=== PATIENT | female | born 1975 | race Caucasian/White ===

== ENCOUNTER → 2023-02-07 | Outpatient (REF) | payer OTHER ==
[2023-02-07 17:56] LABS: APPEARANCE, URINE HAZY (CLEAR); BACTERIA, URINE AUTO NEGATIVE (NEGATIVE); BILIRUBIN, URINE AUTO NEGATIVE (NEGATIVE); BLOOD, URINE BLOOD NEGATIVE (NEGATIVE); COLOR, URINE YELLOW (YELLOW); GLUCOSE, URINE (UA) AUTO NEGATIVE (NEGATIVE); KETONE, URINE AUTO NEGATIVE (NEGATIVE); LEUKOCYTE ESTERASE, URINE AUTO NEGATIVE (NEGATIVE); NITRITE, URINE AUTO NEGATIVE (NEGATIVE); PROTEIN, URINE AUTO NEGATIVE (NEGATIVE); RBC, URINE AUTO 0 /HPF (0-3); SPECIFIC GRAVITY URINE AUTO 1.016 (1.002-1.035); SQUAMOUS EPITHELIAL CELL UR AU 11 /HPF (0-6); UROBILINOGEN, URINE AUTO 0.2 mg/dL (0.0-2.0); WBC, URINE AUTO 4 /HPF (0-3)
== END ==
LOC: M LABSMT 11:09
PROVIDERS: ATTEND Specialist
DX: N39.41 Urge incontinence (principal)

== ENCOUNTER → 2023-05-21 | Outpatient (REF) | payer OTHER ==
[2023-05-21 19:00] LABS: APPEARANCE, URINE CLEAR (CLEAR); BACTERIA, URINE AUTO 1+ (NEGATIVE); BILIRUBIN, URINE AUTO NEGATIVE (NEGATIVE); BLOOD, URINE BLOOD NEGATIVE (NEGATIVE); COLOR, URINE YELLOW (YELLOW); GLUCOSE, URINE (UA) AUTO NEGATIVE (NEGATIVE); KETONE, URINE AUTO NEGATIVE (NEGATIVE); LEUKOCYTE ESTERASE, URINE AUTO NEGATIVE (NEGATIVE); MUCUS, URINE SMALL (NEGATIVE); NITRITE, URINE AUTO NEGATIVE (NEGATIVE); PROTEIN, URINE AUTO NEGATIVE (NEGATIVE); RBC, URINE AUTO 1 /HPF (0-3); SPECIFIC GRAVITY URINE AUTO 1.018 (1.002-1.035); SQUAMOUS EPITHELIAL CELL UR AU 2 /HPF (0-6); WBC, URINE AUTO 4 /HPF (0-3)
== END ==
LOC: M SMT 17:09
PROVIDERS: ATTEND Specialist
DX: N32.81 Overactive bladder (principal)

== ENCOUNTER → 2023-07-12 | Outpatient (REF) | payer OTHER ==
[2023-07-12 17:39] LABS: AMORPHOUS SEDIMENT SMALL (NEGATIVE); APPEARANCE, URINE TURBID (CLEAR); BACTERIA, URINE AUTO 2+ (NEGATIVE); BILIRUBIN, URINE AUTO NEGATIVE (NEGATIVE); BLOOD, URINE BLOOD NEGATIVE (NEGATIVE); COLOR, URINE AMBER (YELLOW); GLUCOSE, URINE (UA) AUTO NEGATIVE (NEGATIVE); KETONE, URINE AUTO NEGATIVE (NEGATIVE); LEUKOCYTE ESTERASE, URINE AUTO TRACE (NEGATIVE); MUCUS, URINE SMALL (NEGATIVE); NITRITE, URINE AUTO POSITIVE (NEGATIVE); PROTEIN, URINE AUTO NEGATIVE (NEGATIVE); RBC, URINE AUTO 0 /HPF (0-3); SQUAMOUS EPITHELIAL CELL UR AU 16 /HPF (0-6); UROBILINOGEN, URINE AUTO 0.2 mg/dL (0.0-2.0); WBC, URINE AUTO 11 /HPF (0-3)
== END ==
LOC: M LABSMT 15:17
PROVIDERS: ATTEND Specialist
DX: R30.0 Dysuria (principal)

== ENCOUNTER → 2024-01-07 | Outpatient (REF) | payer OTHER ==
[2024-01-07 13:06] LABS: APPEARANCE, URINE HAZY (CLEAR); BACTERIA, URINE AUTO 1+ (NEGATIVE); BILIRUBIN, URINE AUTO NEGATIVE (NEGATIVE); BLOOD, URINE BLOOD NEGATIVE (NEGATIVE); COLOR, URINE YELLOW (YELLOW); GLUCOSE, URINE (UA) AUTO NEGATIVE (NEGATIVE); KETONE, URINE AUTO NEGATIVE (NEGATIVE); LEUKOCYTE ESTERASE, URINE AUTO NEGATIVE (NEGATIVE); NITRITE, URINE AUTO NEGATIVE (NEGATIVE); PROTEIN, URINE AUTO NEGATIVE (NEGATIVE); RBC, URINE AUTO 0 /HPF (0-3); SPECIFIC GRAVITY URINE AUTO 1.017 (1.002-1.035); SQUAMOUS EPITHELIAL CELL UR AU 4 /HPF (0-6); UROBILINOGEN, URINE AUTO 0.2 mg/dL (0.0-2.0); WBC, URINE AUTO 1 /HPF (0-3)
== END ==
LOC: M SMT 12:36
PROVIDERS: ATTEND Physician Assistant
DX: R30.0 Dysuria (principal)

== ENCOUNTER → 2024-07-14 | Outpatient (CLI) | payer OTHER | LOC: M SLEEP 20:00 | PROVIDERS: ATTEND Nurse Practitioner Adult Health | DX: G47.33 Obstructive sleep apnea (adult) (pediatric) (principal) ==

== ENCOUNTER 2024-09-07 07:44 | Day surgery (SDC) | payer OTHER ==
[~2024-09-07] VITALS: Ht 172.7 cm; Wt 121.5 kg
[~2024-09-07 07:44] MED LIST: ALBU8.5H INH; AMIT50TA PO; ARIP1TAB6 PO; ATOR1TAB21 PO; DULO1CAP6 PO; FERR324T2 PO; GABA-1172 PO; HYDR-643 PO; LEVO50TA45 PO; METH-855 PO; MONT10TA97 PO; SALA1TAB PO; SEMA0.257 SQ; SOLI5TAB PO; TRAM50TA2 PO; TREL1AER INH; TRIA37.5 PO; UPADACITINIB PO; VIBE75TA PO; ceFAZolin SOD 2 GM IV ONCE IV ONE
[2024-09-07] MEDS ORDERED: LR 1,000 ML IV SCH ×2 (07:50→09:25)
[2024-09-07] MEDS ORDERED: MIDAZOLAM INJ 2MG/2ML VIAL As Ordered ONE (08:32)
[2024-09-07] MEDS ORDERED: fentaNYL 100 MCG/2 ML INJECTION As Ordered ONE (08:32)
[2024-09-07] MEDS ORDERED: propofoL 200 MG/20 ML VIAL As Ordered ONE (08:32)
[2024-09-07] MEDS ORDERED: LIDOCAINE 2% 100MG/5ML SDV (FOR ANES.) As Ordered ONE (08:32)
[2024-09-07] MEDS ORDERED: ONDANSETRON 4MG 2ML VIAL As Ordered ONE (08:32)
[2024-09-07] MEDS: ceFAZolin SOD 3 GM in DEXTROSE 5% (D5W) MINI-BAG PLU 1... IV ONE (08:58)
[2024-09-07] MEDS: LIDOCAINE 2% 5ML JELLY UROJET As Ordered ONE (09:09)
[2024-09-07] MEDS ORDERED: MACR100C43 PO (09:15)
[2024-09-07] MEDS ORDERED: fentaNYL 100 MCG/2 ML INJECTION IV PRN (09:25)
[2024-09-07] MEDS ORDERED: HYDROMORPHONE HCL 0.5 MG/ 0.5 ML SYRINGE IV PRN (09:25)
[2024-09-07] MEDS ORDERED: oxyCODONE 5MG TAB PO PRN (09:25)
[2024-09-07] MEDS ORDERED: ONDANSETRON 4MG 2ML VIAL IV PRN (09:25)
[2024-09-07 10:00] VITALS: BP 142/68; TEMP 97.2; O2SAT 98
== END 2024-09-07 10:26 | disposition home or self-care (01) ==
LOC: M SDC 07:44
PROVIDERS: ATTEND Urology
DX: N39.3 Stress incontinence (female) (male) (principal); E03.9 Hypothyroidism, unspecified; E78.00 Pure hypercholesterolemia, unspecified; J45.909 Unspecified asthma, uncomplicated; Z79.899 Other long term (current) drug therapy; M06.9 Rheumatoid arthritis, unspecified; E55.9 Vitamin D deficiency, unspecified
CPT/HCPCS: 51715; A4215; A4649; J0690; J1100; J2250; J2405; J3010; L8606

== ENCOUNTER → 2024-10-01 | Outpatient (CLI) | payer OTHER ==
[~2024-10-01] MED LIST changes: +B-122500 PO; +BIOT5TAB3 PO; +D-3-50003 PO; +LEVO200T31 PO; +LEVO25TA34 PO; +MACR100C43 PO; +MAPA500C PO; +UPAD15TA PO; -ceFAZolin SOD 2 GM IV ONCE IV ONE
== END ==
LOC: M SLEEP 20:00
PROVIDERS: ATTEND Nurse Practitioner Adult Health
DX: G47.33 Obstructive sleep apnea (adult) (pediatric) (principal)

== ENCOUNTER 2024-10-12 07:38 | Day surgery (SDC) | payer OTHER ==
[~2024-10-12] VITALS: Ht 172.7 cm; Wt 121.1 kg
[~2024-10-12 07:38] MED LIST changes: +LIDOCAINE 2% 100MG/5ML SDV (FOR ANES.) As Ordered ONE; +propofoL 200 MG/20 ML VIAL As Ordered ONE
[2024-10-12] MEDS ORDERED: fentaNYL 100 MCG/2 ML INJECTION As Ordered ONE (08:55)
[2024-10-12] MEDS: ceFAZolin SOD 2 GM IV ONCE IV ONE (09:18)
[2024-10-12] MEDS ORDERED: ONDANSETRON 4MG 2ML VIAL As Ordered ONE (09:28)
[2024-10-12] MEDS: LIDOCAINE 2% 5ML JELLY UROJET As Ordered ONE (09:30)
[2024-10-12] MEDS ORDERED: MEPERIDINE 25 MG/ML 1ML VIAL IV PRN (09:50)
[2024-10-12] MEDS ORDERED: ONDANSETRON 4MG 2ML VIAL IV PRN (09:50)
[2024-10-12] MEDS ORDERED: fentaNYL 100 MCG/2 ML INJECTION IV PRN (09:50)
[2024-10-12] MEDS ORDERED: LR 1,000 ML IV SCH (09:50)
[2024-10-12] MEDS ORDERED: METOCLOPRAMIDE INJ 10MG/2ML VIAL IV PRN (09:50)
[2024-10-12] MEDS ORDERED: diphenhydrAMINE 50MG/ML VIAL IV PRN (09:50)
[2024-10-12] MEDS ORDERED: oxyCODONE 5MG TAB PO PRN (09:50)
[2024-10-12 10:55] VITALS: BP 139/83; TEMP 97.6; O2SAT 100
== END 2024-10-12 10:58 | disposition home or self-care (01) ==
LOC: M SDC 07:38
PROVIDERS: ATTEND Urology
DX: N39.3 Stress incontinence (female) (male) (principal); N28.9 Disorder of kidney and ureter, unspecified; I10 Essential (primary) hypertension; E11.9 Type 2 diabetes mellitus without complications; E78.00 Pure hypercholesterolemia, unspecified; J44.89 Other specified chronic obstructive pulmonary disease; E89.0 Postprocedural hypothyroidism; E66.9 Obesity, unspecified; M06.9 Rheumatoid arthritis, unspecified; Z79.899 Other long term (current) drug therapy; Z79.890 Hormone replacement therapy; Z79.620 Long term (current) use of immunosuppressive biologic; Z79.51 Long term (current) use of inhaled steroids; Z79.85 Long-term (current) use of injectable non-insulin antidiabetic drugs; Z92.3 Personal history of irradiation; F17.210 Nicotine dependence, cigarettes, uncomplicated; K21.9 Gastro-esophageal reflux disease without esophagitis; F41.9 Anxiety disorder, unspecified; F32.A Depression, unspecified; Z90.710 Acquired absence of both cervix and uterus
CPT/HCPCS: 51715; A4215; J0690; J2405; J3010; L8606

== ENCOUNTER → 2024-12-17 | Outpatient (REF) | payer OTHER ==
[~2024-12-17] MED LIST changes: -LIDOCAINE 2% 100MG/5ML SDV (FOR ANES.) As Ordered ONE; -propofoL 200 MG/20 ML VIAL As Ordered ONE
[2024-12-17 13:53] LABS: APPEARANCE, URINE HAZY (CLEAR); BACTERIA, URINE AUTO NEGATIVE (NEGATIVE); BILIRUBIN, URINE AUTO NEGATIVE (NEGATIVE); BLOOD, URINE BLOOD NEGATIVE (NEGATIVE); GLUCOSE, URINE (UA) AUTO NEGATIVE (NEGATIVE); KETONE, URINE AUTO NEGATIVE (NEGATIVE); LEUKOCYTE ESTERASE, URINE AUTO NEGATIVE (NEGATIVE); MUCUS, URINE SMALL (NEGATIVE); NITRITE, URINE AUTO NEGATIVE (NEGATIVE); PROTEIN, URINE AUTO NEGATIVE (NEGATIVE); RBC, URINE AUTO 1 /HPF (0-3); SPECIFIC GRAVITY URINE AUTO 1.017 (1.002-1.035); SQUAMOUS EPITHELIAL CELL UR AU 5 /HPF (0-6); UROBILINOGEN, URINE AUTO 0.2 mg/dL (0.0-2.0); WBC, URINE AUTO 2 /HPF (0-3)
== END ==
LOC: M SMT 12:45
PROVIDERS: ATTEND Urology
DX: R32 Unspecified urinary incontinence (principal)

== ENCOUNTER 2025-01-19 11:20 | Day surgery (SDC) | payer OTHER ==
[~2025-01-19] VITALS: Ht 172.7 cm; Wt 123.2 kg
[~2025-01-19 11:20] MED LIST changes: +DUPI300P; +GABA-1490 PO; +HUMI40IN2; +TIRZ5PEN; +ceFAZolin SOD 2 GM IV ONCE IV ONE
[2025-01-19] MEDS ORDERED: LR 1,000 ML IV SCH (12:05)
[2025-01-19] MEDS ORDERED: LIDOCAINE 2% 100 MG/5 ML SDV (FOR ANES.) As Ordered ONE (12:07)
[2025-01-19] MEDS ORDERED: ONDANSETRON 4MG 2ML VIAL As Ordered ONE (12:08)
[2025-01-19] MEDS ORDERED: dexAMETHasone 4 MG/ML 1 ML VIAL As Ordered ONE (12:08)
[2025-01-19] MEDS ORDERED: MIDAZOLAM INJ 2 MG/2 ML VIAL As Ordered ONE (12:12)
[2025-01-19] MEDS: ceFAZolin SOD 3 GM in DEXTROSE 5% (D5W) MINI-BAG PLU 1... IV ONE (13:46)
[2025-01-19] MEDS ORDERED: ACETAMINOPHEN 1000MG/100ML IV BAG As Ordered ONE (13:49)
[2025-01-19] MEDS: LIDOCAINE W/EPINEPHrine 1% 20 ML VIAL As Ordered ONE (14:30)
[2025-01-19] MEDS ORDERED: MORPHINE 2 MG/ML 1 ML VIAL IV PRN (14:55)
[2025-01-19] MEDS ORDERED: HYDR-3713 PO (15:01)
[2025-01-19] MEDS ORDERED: CEPH500C PO (15:01)
[2025-01-19] MEDS: ONDANSETRON 4MG 2ML VIAL IV PRN (15:29)
[2025-01-19 16:11] VITALS: BP 136/69; TEMP 97.7; O2SAT 96
== END 2025-01-19 16:14 | disposition home or self-care (01) ==
LOC: M SDC 11:20
PROVIDERS: ATTEND Urology
DX: N39.3 Stress incontinence (female) (male) (principal); E11.22 Type 2 diabetes mellitus with diabetic chronic kidney disease; I12.9 Hypertensive chronic kidney disease with stage 1 through stage 4 chronic kidney disease, or unspecified chronic kidney disease; N18.30 Chronic kidney disease, stage 3 unspecified; Z90.710 Acquired absence of both cervix and uterus; D63.1 Anemia in chronic kidney disease; E05.00 Thyrotoxicosis with diffuse goiter without thyrotoxic crisis or storm; J44.89 Other specified chronic obstructive pulmonary disease; E78.00 Pure hypercholesterolemia, unspecified; Z79.899 Other long term (current) drug therapy; Z79.620 Long term (current) use of immunosuppressive biologic; Z79.85 Long-term (current) use of injectable non-insulin antidiabetic drugs; F17.210 Nicotine dependence, cigarettes, uncomplicated; G47.30 Sleep apnea, unspecified; Z92.3 Personal history of irradiation
CPT/HCPCS: 57288; C1771; J0131; J0688; J1100; J2250; J2405; J3010

== ENCOUNTER → 2025-02-02 | Outpatient (REF) | payer OTHER ==
[~2025-02-02] MED LIST changes: +ADAL40AU16 SQ; +CEPH500C PO; -DUPI300P; +DUPI300P SQ; +HYDR-3713 PO; -TIRZ5PEN; +TIRZ5PEN SQ; -ceFAZolin SOD 2 GM IV ONCE IV ONE
== END ==
LOC: M SMT 16:47
PROVIDERS: ATTEND Physician Assistant
DX: L03.90 Cellulitis, unspecified (principal)

== ENCOUNTER → 2025-02-03 | Outpatient (CLI) | payer OTHER | LOC: M SOG 06:52 | PROVIDERS: ATTEND Neuromusculoskeletal Medicine, Sports Medicine | DX: G56.03 Carpal tunnel syndrome, bilateral upper limbs (principal) ==

== ENCOUNTER 2025-02-06 01:52 | Inpatient (IN) | payer OTHER ==
[~2025-02-06] VITALS: Ht 172.7 cm; Wt 125.1 kg
[~2025-02-06 01:52] MED LIST changes: -ADAL40AU16 SQ
[2025-02-06 02:52] LABS: BASO # 0.0 10^3/uL (0.0-0.2); BASO % 0.2 % (0.0-1.0); EOS # 0.2 10^3/uL (0.0-0.5); EOS % 1.6 % (0.0-3.0); LYMPH # 1.3 10^3/uL (1.5-5.0); LYMPH % 10.4 % (24.0-44.0); MONO # 0.7 10^3/uL (0.0-0.8); MONO % 5.6 % (2.0-8.0); NEUTROPHILS # 10.4 10^3/uL (1.5-8.5); NEUTROPHILS % 81.6 % (36.0-66.0); PLATELET COUNT, AUTOMATED 328 10^3/uL (150-450)
[2025-02-06 03:02] LABS: CALCIUM LEVEL 8.1 MG/DL (8.5-10.1); CARBON DIOXIDE LEVEL 27.0 MMOL/L (20-31); CHLORIDE LEVEL 101.0 MMOL/L (98-107); CREATININE FOR GFR 1.79 MG/DL (0.55-1.30); GLOMERULAR FILTRATION RATE 34.1 (>51); POTASSIUM SERUM 4.8 MMOL/L (3.5-5.1); SODIUM LEVEL 136.0 MMOL/L (136-145)
[2025-02-06] MEDS: ONDANSETRON 4MG 2ML VIAL IV ONE (07:49)
[2025-02-06] MEDS: NS (Normal Saline) 0.9% 1,000 ML IV ONE (07:50)
[2025-02-06] MEDS: MORPHINE 4 MG/ML 1 ML VIAL IV ONE (07:50)
[2025-02-06] MEDS: VANCOMYCIN HCL 2,000 MG, VIAL MATE ADAPTER 1 EACH in NS 500 ML IV ONE (08:21)
[2025-02-06 09:08] LABS: C REACTIVE PROTEIN QUANTITATIV 24.88 MG/DL (<1.0)
[2025-02-06] MEDS ORDERED: VANCOMYCIN HCL 1,000 MG in IV FLUID PLACE HOLDER 1 EA IV SCH (09:40)
[2025-02-06] MEDS ORDERED: ONDANSETRON 4MG 2ML VIAL IV PRN (09:40)
[2025-02-06] MEDS ORDERED: NALOXONE INJ 0.4 MG/1 ML VIAL IV PRN (09:40)
[2025-02-06] MEDS ORDERED: ACETAMINOPHEN 325 MG TAB PO PRN (09:40)
[2025-02-06] MEDS ORDERED: PIPERACILLIN/TAZOBACTAM SOD 4.5 GM in DEXTROSE 5% (D5W) ADV/MINI-BAG 50 ML IV SCH (09:40)
[2025-02-06] MEDS ORDERED: CEPH500C PO (09:57)
[2025-02-06] MEDS ORDERED: LEVO25TA34 PO (10:01)
[2025-02-06] MEDS ORDERED: ADAL40AU16 SQ (10:07)
[2025-02-06] MEDS ORDERED: HOME MED LIST COMPLETE! XX SCH (10:10)
[2025-02-06 10:13] LABS: CHOLESTEROL LEVEL 162.0 MG/DL (<200); CHOLESTEROL RISK RATIO 4.48 (<5); LDL CHOLESTEROL 91.1 MG/DL (<100); NON-HDL-C 125.9 MG/DL; TRIGLYCERIDES LEVEL 174.0 MG/DL (<150)
[2025-02-06 10:36] LABS: ESTIMATED AVERAGE GLUCOSE 143.0 MG/DL (60-110)
[2025-02-06] MEDS: PIPERACILLIN/TAZOBACTAM SOD 4.5 GM in DEXTROSE 5% (D5W) ADV/MINI-BAG 50 ML IV ONE (10:58)
[2025-02-06 11:15] VITALS: BP 102/57; TEMP 97.6; O2SAT 99
[2025-02-06 11:17] VITALS: BP 102/57; TEMP 97.6
[2025-02-06] MEDS: PERCOCET 5MG/325MG TAB PO PRN ×2 (11:43→16:22)
[2025-02-06] MEDS: LR 1,000 ML IV ONE (12:04)
[2025-02-06 13:48] VITALS: BP 116/59; TEMP 97.6; O2SAT 96
[2025-02-06] MEDS: PERCOCET 5MG/325MG TAB PO ONE (15:05)
[2025-02-06] MEDS: NS (Normal Saline) 0.9% 1,000 ML IV SCH (15:29)
[2025-02-06 17:27] LABS: KETONE, URINE AUTO RFX NEGATIVE (NEGATIVE); NITRITE, URINE AUTO RFX NEGATIVE (NEGATIVE); RBC, URINE AUTO RFX 24 /HPF (0-3); SQUAM EPITHELIAL CELL UR AURFX 20 /HPF (0-6); YEAST LIKE CELL URINE AUTO RFX SMALL
[2025-02-06 17:30] LABS: LEUKOCYTE ESTERASE UR AUTO RFX 3+ (NEGATIVE); WBC, URINE AUTO RFX TNTC /HPF (0-3)
[2025-02-06] MEDS ORDERED: GLUCAGON INJ 1 MG VIAL SC PRN (17:35)
[2025-02-06] MEDS ORDERED: GLUCOSE 4 GM CHEW PO PRN (17:35)
[2025-02-06] MEDS ORDERED: DEXTROSE 50% 50 ML SYRINGE IV PRN (17:35)
[2025-02-06] MEDS: INSULIN LISPRO (NovoLOG) PER UNIT SC SCH ×2 (17:53→21:00)
[2025-02-06] MEDS: PIPERACILLIN/TAZOBACTAM SOD 4.5 GM in DEXTROSE 5% (D5W) ADV/MINI-BAG 50 ML IV SCH (18:54)
[2025-02-06 20:00] VITALS: BP 134/63; TEMP 97.3; O2SAT 95
[2025-02-07] VITALS: BP 146/79; TEMP 97; O2SAT 96
[2025-02-07 07:26] LABS: BASO # 0.0 10^3/uL (0.0-0.2); BASO % 0.2 % (0.0-1.0); EOS # 0.2 10^3/uL (0.0-0.5); EOS % 1.7 % (0.0-3.0); LYMPH # 1.0 10^3/uL (1.5-5.0); LYMPH % 7.7 % (24.0-44.0); MONO # 0.8 10^3/uL (0.0-0.8); MONO % 6.1 % (2.0-8.0); NEUTROPHILS # 10.9 10^3/uL (1.5-8.5); NEUTROPHILS % 83.7 % (36.0-66.0); PLATELET COUNT, AUTOMATED 323 10^3/uL (150-450)
[2025-02-07 07:53] LABS: ALT/SGPT 34.0 U/L (7.0-40); AST/SGOT 22.0 U/L (<34); CALCIUM LEVEL 7.9 MG/DL (8.5-10.1); CARBON DIOXIDE LEVEL 26.0 MMOL/L (20-31); CHLORIDE LEVEL 104.0 MMOL/L (98-107); CREATININE FOR GFR 1.8 MG/DL (0.55-1.30); GLOMERULAR FILTRATION RATE 33.9 (>51); POTASSIUM SERUM 4.5 MMOL/L (3.5-5.1); SODIUM LEVEL 138.0 MMOL/L (136-145)
[2025-02-07 07:57] LABS: ESTIMATED AVERAGE GLUCOSE 148.0 MG/DL (60-110)
[2025-02-07] MEDS ORDERED: VANCOMYCIN HCL 1,000 MG, VIAL MATE ADAPTER 1 EACH in NS 250 ML IV SCH (08:00)
[2025-02-07 08:30] VITALS: BP 121/69; TEMP 96.8; O2SAT 92
[2025-02-07 08:58] VITALS: O2SAT 88
[2025-02-07 09:02] VITALS: O2SAT 93
[2025-02-07] MEDS ORDERED: ALBUTEROL 90 MCG/ACT 8 GM HFA INHALER INH PRN (13:00)
[2025-02-07] MEDS: traMADol 50 MG TAB PO PRN ×2 (13:18→20:44)
[2025-02-07] MEDS: PERCOCET 5MG/325MG TAB PO PRN (16:22)
[2025-02-07] MEDS: HYDROMORPHONE HCL 0.5 MG/0.5 ML SYRINGE IV ONE (16:23)
[2025-02-07] MEDS: LEVOTHYROXINE 25 MCG TABLET (0.025MG) PO SCH (16:32)
[2025-02-07] MEDS: LEVOTHYROXINE 100 MCG TABLET (0.1 MG) PO SCH (16:32)
[2025-02-07] MEDS: CYANOCOBALAMIN 500 MCG TAB PO SCH (16:33)
[2025-02-07] MEDS: MONTELUKAST 10 MG TAB PO SCH (16:33)
[2025-02-07 18:00] VITALS: BP 140/66; TEMP 99.5; O2SAT 95
[2025-02-07 20:00] VITALS: BP 118/63; TEMP 97.2; O2SAT 93
[2025-02-07] MEDS: AMITRIPTYLINE 50MG TAB PO SCH (20:43)
[2025-02-07] MEDS ORDERED: ATORVASTATIN 20 MG TAB PO SCH (21:00)
[2025-02-08 04:00] VITALS: BP 121/69; TEMP 96.9; O2SAT 95
[2025-02-08 07:14] LABS: BASO # 0.0 10^3/uL (0.0-0.2); BASO % 0.3 % (0.0-1.0); EOS # 0.3 10^3/uL (0.0-0.5); EOS % 3.3 % (0.0-3.0); LYMPH # 0.9 10^3/uL (1.5-5.0); LYMPH % 9.8 % (24.0-44.0); MONO # 0.6 10^3/uL (0.0-0.8); MONO % 7.0 % (2.0-8.0); NEUTROPHILS # 7.2 10^3/uL (1.5-8.5); NEUTROPHILS % 79.2 % (36.0-66.0); PLATELET COUNT, AUTOMATED 356 10^3/uL (150-450)
[2025-02-08 08:00] VITALS: BP 115/59; TEMP 97.8; O2SAT 97
[2025-02-08 08:15] LABS: CALCIUM LEVEL 8.6 MG/DL (8.5-10.1); CARBON DIOXIDE LEVEL 27.0 MMOL/L (20-31); CHLORIDE LEVEL 104.0 MMOL/L (98-107); CREATININE FOR GFR 1.74 MG/DL (0.55-1.30); GLOMERULAR FILTRATION RATE 35.3 (>51); POTASSIUM SERUM 4.4 MMOL/L (3.5-5.1); SODIUM LEVEL 140.0 MMOL/L (136-145)
[2025-02-08] MEDS: PERCOCET 5MG/325MG TAB PO ONE (08:54)
[2025-02-08] MEDS: MORPHINE 2 MG/ML 1 ML VIAL IV ONE (10:47)
[2025-02-08 12:30] VITALS: O2SAT 88
[2025-02-08 13:05] VITALS: O2SAT 95
[2025-02-08 20:00] VITALS: BP 138/72; TEMP 98.2; O2SAT 95
[2025-02-09 03:00] VITALS: BP 134/64; TEMP 97.1; O2SAT 98
[2025-02-09] MEDS: PERCOCET 5MG/325MG TAB PO ONE ×2 (07:33→15:08)
[2025-02-09 07:59] VITALS: BP 147/68; TEMP 97.8; O2SAT 97
[2025-02-09 08:07] LABS: BASO # 0.0 10^3/uL (0.0-0.2); BASO % 0.3 % (0.0-1.0); EOS # 0.2 10^3/uL (0.0-0.5); EOS % 3.5 % (0.0-3.0); LYMPH # 0.9 10^3/uL (1.5-5.0); LYMPH % 13.7 % (24.0-44.0); MONO # 0.5 10^3/uL (0.0-0.8); MONO % 7.3 % (2.0-8.0); NEUTROPHILS # 5.1 10^3/uL (1.5-8.5); NEUTROPHILS % 74.8 % (36.0-66.0); PLATELET COUNT, AUTOMATED 416 10^3/uL (150-450)
[2025-02-09 08:17] LABS: CALCIUM LEVEL 8.9 MG/DL (8.5-10.1); CARBON DIOXIDE LEVEL 28.0 MMOL/L (20-31); CHLORIDE LEVEL 106.0 MMOL/L (98-107); CREATININE FOR GFR 1.66 MG/DL (0.55-1.30); GLOMERULAR FILTRATION RATE 37.4 (>51); POTASSIUM SERUM 4.7 MMOL/L (3.5-5.1); SODIUM LEVEL 141.0 MMOL/L (136-145)
[2025-02-09 08:27] LABS: C REACTIVE PROTEIN QUANTITATIV 20.58 MG/DL (<1.0)
[2025-02-09] MEDS ORDERED: PERCOCET PO (12:34)
[2025-02-09] MEDS ORDERED: ASPI81TA26 PO (12:41)
[2025-02-09] MEDS ORDERED: METF-839 PO (12:41)
[2025-02-09] MEDS ORDERED: ATOR40TA75 PO (12:41)
[2025-02-09] MEDS ORDERED: LANC30MI XX (12:43)
[2025-02-09] MEDS ORDERED: BLOOKIT21 XX (12:43)
[2025-02-09] MEDS ORDERED: ALCOPAD25 TOP (12:43)
[2025-02-09] MEDS ORDERED: GLUC1TES2 XX (12:43)
[2025-02-09] MEDS: metFORMIN 500 MG TAB PO ONE (13:52)
[2025-02-09 14:15] VITALS: BP 157/76; TEMP 97.8; O2SAT 96
[2025-02-09] MEDS ORDERED: NORV5TAB PO (14:30)
[2025-02-09] MEDS ORDERED: PERCOCET 5MG/325MG TAB PO ONE (14:30)
[2025-02-09] MEDS ORDERED: TALK1KIT MC (14:32)
[2025-02-09] MEDS ORDERED: PILL CUTTER 1 EACH XX PRN (14:50)
[2025-02-09] MEDS: ATENOLOL 12.5 MG PER 1/2 TABLET PO ONE (15:02)
[2025-02-09 15:03] VITALS: BP 157/76
[2025-02-09] MEDS ORDERED: ATORVASTATIN 20 MG TAB PO SCH (21:00)
[2025-02-10] MEDS ORDERED: metFORMIN 500 MG TAB PO SCH (08:00)
[2025-02-10] MEDS ORDERED: MOUNJARO SQ SCH (09:00)
== END 2025-02-09 15:12 | disposition home or self-care (01) | DRG 720 ==
LOC: M ED 01:52 → M ED INP 09:24 → M PED 11:06
PROVIDERS: ADMIT General Practice; ATTEND General Practice
DX: A41.9 Sepsis, unspecified organism (principal); D84.9 Immunodeficiency, unspecified; E11.22 Type 2 diabetes mellitus with diabetic chronic kidney disease; T81.41XA Infection following a procedure, superficial incisional surgical site, initial encounter; N18.32 Chronic kidney disease, stage 3b; K76.0 Fatty (change of) liver, not elsewhere classified; E66.01 Morbid (severe) obesity due to excess calories; L03.315 Cellulitis of perineum; Z68.41 Body mass index [BMI] 40.0-44.9, adult; E03.9 Hypothyroidism, unspecified; E78.00 Pure hypercholesterolemia, unspecified; M06.9 Rheumatoid arthritis, unspecified; L30.9 Dermatitis, unspecified; J45.909 Unspecified asthma, uncomplicated; I12.9 Hypertensive chronic kidney disease with stage 1 through stage 4 chronic kidney disease, or unspecified chronic kidney disease; M79.7 Fibromyalgia; G47.33 Obstructive sleep apnea (adult) (pediatric); F17.200 Nicotine dependence, unspecified, uncomplicated; K59.00 Constipation, unspecified; L73.2 Hidradenitis suppurativa; Z98.49 Cataract extraction status, unspecified eye; Z90.79 Acquired absence of other genital organ(s); Z79.890 Hormone replacement therapy; Z79.899 Other long term (current) drug therapy; Z88.6 Allergy status to analgesic agent

== ENCOUNTER 2025-02-09 15:06 | Outpatient (CLI) | payer OTHER ==
[~2025-02-09] VITALS: Ht 172.7 cm; Wt 125.1 kg
[~2025-02-09 15:06] MED LIST changes: +ADAL40AU16 SQ; +ALCOPAD25 TOP; +ASPI81TA26 PO; +ATOR40TA75 PO; +BLOOKIT21 XX; +GLUC1TES2 XX; +LANC30MI XX; +METF-839 PO; +NORV5TAB PO; +PERCOCET PO; +TALK1KIT MC
[2025-02-09 15:55] VITALS: BP 124/82; TEMP 97.2; O2SAT 94
[2025-02-09] MEDS: DALBAVANCIN 1,500 MG in D5W 250 ML IV ONE (16:00)
== END 2025-02-09 17:20 | disposition home or self-care (01) ==
LOC: M OPCLIPED 15:06 → M PED 15:20 → M OPCLIPED 17:20
PROVIDERS: ATTEND General Practice
DX: L02.214 Cutaneous abscess of groin (principal); B95.61 Methicillin susceptible Staphylococcus aureus infection as the cause of diseases classified elsewhere; Z88.6 Allergy status to analgesic agent
CPT/HCPCS: 96365; J0875